=== PATIENT | male | born 1965 | race Caucasian/White ===

== ENCOUNTER → 2018-03-23 | Emergency (ER) | payer OTHER ==
[~2018-03-23] VITALS: Ht 162.6 cm; Wt 68.9 kg
[~2018-03-23] MED LIST: NEURONTIN300 MG; ULTRAM50 MG
== END | disposition home or self-care (01) ==
LOC: ER 15:17
DX: K52.89 Other specified noninfective gastroenteritis and colitis (principal)

== ENCOUNTER 2018-08-13 13:23 | Emergency (ER) | payer OTHER ==
[~2018-08-13] VITALS: Ht 162.6 cm; Wt 68.0 kg
[2018-08-13] MEDS ORDERED: NEURONTIN800 MG (14:01)
[2018-08-13] MEDS ORDERED: ULTRAM50 MG (14:02)
[2018-08-13] MEDS ORDERED: NEURONTIN800 MG PO (17:08)
[2018-08-13] MEDS ORDERED: TRAMADOL HCL50 MG PO (17:08)
== END 2018-08-13 17:21 | disposition home or self-care (01) ==
LOC: ER 13:23
DX: M51.36 Other intervertebral disc degeneration, lumbar region (principal); M54.5 Low back pain

== ENCOUNTER 2024-04-15 15:54 | Emergency (ER) | payer OTHER ==
[~2024-04-15] VITALS: Ht 162.6 cm; Wt 77.1 kg
[~2024-04-15 15:54] MED LIST changes: +NEURONTIN800 MG; +NEURONTIN800 MG PO; +TRAMADOL HCL50 MG PO
[2024-04-15] MEDS ORDERED: KETOROLAC TROMETHAMINE 60 MG VIAL IM ONE ×2 (18:00→18:08)
[2024-04-15] MEDS ORDERED: ORPHENADRINE CITRATE 30 MG/ML AMPUL ONE (18:08)
[2024-04-15] MEDS ORDERED: ORPHENADRINE CITRATE 30 MG/ML AMPUL IM ONE (18:15)
[2024-04-15] MEDS ORDERED: NORFLEX100MG PO (20:12)
[2024-04-15] MEDS ORDERED: DICLOFENAC SODI50 MG PO (20:12)
== END 2024-04-15 20:39 | disposition home or self-care (01) ==
LOC: ER 15:55
DX: M54.50 Low back pain, unspecified (principal); M54.9 Dorsalgia, unspecified
CPT/HCPCS: 72070; 72100; 96372; 99283; J1885; J2360